=== PATIENT | male | born 1975 | race Caucasian/White ===

== ENCOUNTER 2016-05-04 09:40 | Emergency (ER) | payer BC | END 2016-05-04 10:40 | disposition left against medical advice (07) | LOC: JP.ED 09:40 | DX: Z53.21 Procedure and treatment not carried out due to patient leaving prior to being seen by health care provider (principal) | CPT/HCPCS: 99281 ==

== ENCOUNTER 2021-10-17 12:04 | Emergency (ER) | payer BC, MEDICAID ==
[2021-10-17 12:21] VITALS: BP 142/80; PULSE 63
== END 2021-10-17 12:48 | disposition home or self-care (01) ==
LOC: JP.ED 12:04
DX: K04.7 Periapical abscess without sinus (principal); K02.9 Dental caries, unspecified; F17.210 Nicotine dependence, cigarettes, uncomplicated
CPT/HCPCS: 99282

== ENCOUNTER 2022-07-27 10:40 | Emergency (ER) | payer MEDICAID ==
[2022-07-27 11:14] VITALS: BP 138/109; PULSE 83
[2022-07-27] MEDS ORDERED: Ketorolac 30 MG/ML SDV IM ONE (11:25)
== END 2022-07-27 11:50 | disposition home or self-care (01) ==
LOC: JP.ED 10:40
DX: K03.81 Cracked tooth (principal); K04.7 Periapical abscess without sinus; K02.9 Dental caries, unspecified; Z72.0 Tobacco use
CPT/HCPCS: 96372; 99283; J1885